=== PATIENT | female | born 2000 | race African-American/Black ===

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

== ENCOUNTER 2020-03-13 08:33 | Emergency (ER) | payer MEDICAID ==
[~2020-03-13] VITALS: Ht 157.5 cm; Wt 90.0 kg
[2020-03-13 10:03] VITALS: BP 118/64
== END 2020-03-13 10:04 | disposition home or self-care (01) ==
LOC: ER 08:33
DX: L01.02 Bockhart's impetigo (principal)
CPT/HCPCS: 99282

== ENCOUNTER 2021-01-30 08:45 | Emergency (ER) | payer MEDICAID ==
[2021-01-30 09:08] VITALS: BP 114/78
[2021-01-30] MEDS ORDERED: ALBUTEROL (0.083%) 2.5MG/3ML NEB HHN STA (11:07)
[2021-01-30] MEDS ORDERED: IPRATROPIUM BROMIDE (0.02%) 0.5MG/2.5ML NEB HHN STA (11:07)
[2021-01-30] MEDS ORDERED: PREDNISONE 20MG TABLET PO STA (11:07)
[2021-01-30] MEDS ORDERED: AZIT250T12 MT (12:31)
[2021-01-30] MEDS ORDERED: ALBU6.7H11 INH (12:31)
[2021-01-30] MEDS ORDERED: P50 MT (12:31)
== END 2021-01-30 13:25 | disposition home or self-care (01) ==
LOC: ER 08:45
DX: J40 Bronchitis, not specified as acute or chronic (principal); F17.290 Nicotine dependence, other tobacco product, uncomplicated; Z91.041 Radiographic dye allergy status
CPT/HCPCS: 71045; 81025; 94640; 99283; 99406; J7512; Z7610

== ENCOUNTER 2021-04-06 13:10 | Emergency (ER) | payer MEDICAID ==
[~2021-04-06] VITALS: Ht 160 cm; Wt 74.0 kg
[~2021-04-06 13:10] MED LIST: ALBU6.7H15 INH; AZIT250T12 MT; P50 MT
[2021-04-06 13:16] VITALS: BP 102/61
[2021-04-06] MEDS ORDERED: ALBUTEROL (0.083%) 2.5MG/3ML NEB HHN STA (13:40)
[2021-04-06] MEDS ORDERED: PREDNISONE 20MG TABLET PO STA (13:40)
[2021-04-06] MEDS ORDERED: IPRATROPIUM BROMIDE (0.02%) 0.5MG/2.5ML NEB HHN STA (13:40)
[2021-04-06] MEDS ORDERED: ALBU6.7H9 INH (14:32)
[2021-04-06] MEDS ORDERED: AZIT250T12 MT (14:32)
[2021-04-06] MEDS ORDERED: ALBU05 NEB (14:32)
[2021-04-06] MEDS ORDERED: P50 MT (14:32)
== END 2021-04-06 14:58 | disposition home or self-care (01) ==
LOC: ER 13:10
DX: J20.9 Acute bronchitis, unspecified (principal); Z91.041 Radiographic dye allergy status
CPT/HCPCS: 71045; 94640; 99283; J7512; Z7610